=== PATIENT | female | born 1990 | race Caucasian/White ===

== ENCOUNTER 2025-06-08 11:59 | Emergency (ER) | payer OTHER, SELFPAY ==
[2025-06-08] VITALS (7 sets, daily range): BP systolic 107–149; BP diastolic 57–87; PULSE 45–93; RESP 12–18; TEMP 36.2–37.1; O2SAT 97–100; BMI 22.6
--- NOTE | ~2025-06-08 | CT_ITS ---
CLINICAL HISTORY: ttp rlq and epigastric region Exam: CT Abdomen and Pelvis With IV Contrast Comparison: 06/08/2025, [address] [facility] Findings: The liver density is homogeneous. No biliary abnormalities The spleen is normal in size No pancreatic ductal dilatation No hydronephrosis. No urinary tract calculi or obstruction No adenopathy Fluid-filled loops of bowel measuring 2.8-3 cm in diameter in the upper mid abdomen consistent with localized ileus. No signs of obstruction with abrupt zone of transition. The appendix is normal. No free fluid/free air No vascular abnormalities Bladder outline is smooth No suspicious skeletal lesions. Impression : Fluid-filled loops of bowel in the upper abdomen without zone of transition, most consistent with localized ileus. Follow-up x-ray may be of benefit to document resolution or progression of this abnormal bowel-gas pattern. Normal-size uterus. Anterior lower uterine segment wall thinning and uterine scar is present This document has been electronically signed by: Kit Valdez MD on 06/08/2025 18:04:13
--- NOTE | 2025-06-08 12:10 | ED_ITS ---
HPI - General Adult General Chief complaint: Nausea/Vomiting/Diarrhea Stated complaint: n/v/d Time Seen by Provider: 06/08/25 16:08 Source: patient Mode of arrival: ambulatory Limitations: no limitations History of Present Illness ED Provider: Jody Garcia PA-C HPI narrative: 34-year-old female presents with one week of persistent vomiting. She reports that any oral intake (solids or liquids) provokes emesis. No associated hematemesis or diarrhea. She notes minimal urine output. Denies sick contacts, recent travel, dietary changes, or known exposure to similar illness. No prior history of GERD, gastritis, or other abdominal disorders. Denies heartburn. Abdominal pain is present, localized mainly to the epigastric region and right lower quadrant, rated 6/10 at presentation. No prior abdominal surgeries except for two sections. Currently mildly nauseated in the ED. No chest pain with eating. Last attempted oral intake was broth two days ago, which she was unable to tolerate. No home treatments taken for pain or nausea. Review of Systems: * Constitutional: Positive for nausea and vomiting x1 week; denies fever, chills. * GI: Positive for abdominal pain (epigastric, RLQ), nausea, vomiting. Denies hematemesis, diarrhea, heartburn, or change in bowel habits. * : Reports diminished urine output; denies dysuria, hematuria, vaginal symptoms. * Respiratory: Denies cough, sore throat. * Dermatologic: Denies rashes. * ENT: Denies sore throat. * Other systems: Not specifically discussed. Related Data Allergies Allergy/AdvReac Type Severity Reaction Status Date / Time No Known Allergies Allergy Verified 06/08/25 12:12 Review of Systems 2 Review of Systems: Yes all other systems are reviewed and are negative PMFSH Past Medical History Attestation statement: The following information was validated with the patient. Source: nursing notes reviewed Physical Exam ED Exam Exam: - General: Alert, appears mildly uncomfortable but not in acute distress. - HEENT: Oral mucosa moist; ; no significant dryness or oral lesions, no lymphadenopathy. No pallor, no scleral icteris - Chest: Chest wall nontender. Lungs CTAB, HEART: no M/R/G, s1 and s2 present, distal pulses 2+ equal and symmetric, cap refill < 3 secs - Abdomen: Soft. Mild tenderness on palpation of epigastric area, right lower quadrant, and periumbilical region; no guarding noted. - Skin: No rashes observed. Vital Signs: Vital Signs - 24 hr 06/08/25 12:10 06/08/25 14:19 06/08/25 16:31 Temperature 97.1 F 98.7 F 98.7 F Pulse Rate 93 75 67 Respiratory Rate 18 14 14 Blood Pressure 149/87 H 139/78 135/71 Pulse Oximetry 97 97 97 Oxygen Delivery Method Room Air Room Air Room Air 06/08/25 17:42 06/08/25 18:40 06/08/25 20:14 Temperature 98.3 F Pulse Rate 45 L 62 64 Respiratory Rate 18 12 16 Blood Pressure 127/73 132/68 107/57 L Pulse Oximetry 100 100 99 Oxygen Delivery Method Room Air Room Air Room Air BMI result Body Mass Index 22.6 Course Course Course Narrative: Rapid medical examination performed in triage by Amanda Mercedes PA-C: Patient is a 34 year old assigned female at presenting to the emergency department with nausea, vomiting, and diarrhea. Patient states that over the last week she has been throwing up. Detailed physical exam and review of systems are deferred to the mid level clinician. Labs ordered. Patient placed back in the waiting room pending room availability and results. Medications Administered Discontinued Medications Generic Name Dose Route Start Last Admin Trade Name Freq PRN Reason Stop Dose Admin Sodium Chloride 1,000 mls @ 999 mls/hr 06/08/25 16:19 06/08/25 17:46 Ns IV 06/08/25 17:19 Infused .Q1H1M ONE Infusion Iohexol 100 ml 06/08/25 17:06 06/08/25 17:06 Iohexol 350 Mg/Ml 100 Ml Infus..Btl IV 06/08/25 17:07 85 ml ONCE ONE Administration Morphine Sulfate 2 mg 06/08/25 16:19 06/08/25 16:43 Morphine Sulfate 4 Mg/Ml Cartridge IVPUSH 06/08/25 16:20 2 mg ONCE ONE Administration Protocol Ondansetron HCl 4 mg 06/08/25 16:19 06/08/25 16:43 Ondansetron Hcl 4 Mg/2 Ml Vial IVPUSH 06/08/25 16:20 4 mg ONCE ONE Administration Medical Decision Making Medical Decision Making MDM Narrative: 34-year-old female presents with one week of persistent vomiting triggered by any oral intake, mild abdominal pain (epigastric and right lower quadrant), and minimal urine output. She is afebrile, hemodynamically stable, and does not appear in acute distress. Laboratory evaluation reveals leukocytosis with left shift, mild dehydration, and a negative test. CT abdomen/pelvis demonstrates fluid-filled loops of bowel in the upper abdomen without a clear transition zone, consistent with localized ileus. No evidence of bowel obstruction, sepsis, or acute surgical abdomen. Differential Diagnosis: * Localized ileus (most likely, given CT findings and clinical stability) * Early bowel obstruction (less likely due to absence of transition zone and clinical findings) * Infectious gastroenteritis (no sick contacts, travel, or diarrhea; less likely) * Metabolic derangements (electrolytes largely normal except for mild dehydration) * Medication-induced symptoms (no relevant medication history reported) * Gynecologic causes (negative test, no vaginal symptoms) Interpretation of [place] Findings: * CBC: Leukocytosis (WBC 15.8 K/?L) with left shift, supporting an inflammatory process but not specific for infection or sepsis. * CT Abdomen/Pelvis: Fluid-filled loops of bowel without transition zone, consistent with localized ileus; no evidence of obstruction, mass, or acute surgical pathology. * Electrolytes: Sodium, potassium, chloride within normal limits; mild dehydration suggested by BUN elevation and urine specific gravity. * test: Negative, ruling out -related causes. * Urinalysis: Mild proteinuria, otherwise unremarkable. * Vital signs: Afebrile, stable heart rate and blood pressure, no tachypnea or hypotension. Clinical Reasoning: * Bowel obstruction is unlikely given the absence of a transition zone on CT, lack of severe abdominal distension, and ability to tolerate some oral intake. * Sepsis is ruled out by the absence of fever, hemodynamic instability, and unremarkable urinalysis and imaging. * Acute surgical abdomen is not suspected due to lack of peritoneal signs, guarding, or severe pain. Rationale for Outpatient Management: * Patient is hemodynamically stable and afebrile. * She is able to tolerate some oral intake and is not in acute distress. * No evidence of obstruction, sepsis, or acute surgical pathology on imaging or exam. * Close outpatient follow-up and strict return precautions are appropriate to monitor for progression. Justification for Interventions: * IV fluids for rehydration, addressing mild dehydration and supporting hemodynamic stability. * Antiemetics (ondansetron) for symptomatic control of nausea and vomiting. * Pain control as needed per ED protocol. * Follow-up abdominal X-ray to monitor for resolution or progression of ileus, as recommended by radiology. * Outpatient GI referral for further evaluation and management. * Strict return precautions for worsening symptoms, inability to tolerate oral intake, or new concerning findings. Differential Diagnosis Differential Diagnoses: The differential diagnosis associated with the presentation includes See [facility] Admission/Observation Consideration of admission/observation: Escalation of care including admission/observation considered Lab Data [facility] Lab Attestation statement: I reviewed the patient's lab results. - CBC: WBC 15.8 K/?L with left shift. - Electrolytes: Na, K, Cl within normal limits; CO? 40 mmol/L. - BUN 25 mg/dL; Creatinine within normal limits; GFR >60 mL/min. - Glucose 110 mg/dL. - Calcium 11.1 mg/dL (uncorrected). - Liver panel: AST 37 U/L (mildly elevated); albumin 6.3 g/dL; total protein 9.9 g/dL. - test: Negative. - Viral panel: COVID, Flu, RSV negative. - UA: No leukocytosis; nitrites ?blood?; protein 100 mg/dL; specific gravity 1.030. 06/08/25 12:58 06/08/25 12:58 Labs: Lab Results 06/08/25 06/08/25 Range/Units 12:58 17:47 WBC 15.8 H (4.8-10.8) X10*3/uL RBC 5.89 H (4.20-5.50) X10*6/uL Hgb 13.8 (12.0-16.0) g/dl Hct 44.2 (37.0-47.0) % MCV 75.0 L (80.0-98.0) fL MCH 23.4 L (27.0-33.0) pg MCHC 31.2 (31.0-35.0) g/dl RDW 20.7 H (11.0-16.0) % Plt Count 468 H (160-400) X10*3/uL MPV 11.2 (9.4-12.3) fL Immature Gran % (Auto) 0.3 (0.0-0.4) % Neut % (Auto) 87.8 H (45-73) % Lymph % (Auto) 6.6 L (20-40) % Graham % (Auto) 4.9 (2-11) % Eos % (Auto) 0.1 (0-4) % Baso % (Auto) 0.3 (0-2) % Lymph # (Auto) 1.1 L (1.2-4.9) X10*3/uL Graham # (Auto) 0.8 (0.1-1.2) X10*3/uL Eos # (Auto) 0.0 (0.0-0.4) X10*3/uL Baso # (Auto) 0.1 (0.0-0.2) X10*3/uL Abs Immat Gran (auto) 0.04 H (0.00-0.03) X10*3/uL Absolute Neuts (auto) 13.9 H (2.0-8.3) x10*3/uL Absolute Nucleated RBC 0.000 (0.0-0.012) X10*3/uL Nucleated RBC % (auto) 0.0 (0.0-0.2) /100WBC Sodium 138 (135-145) mmol/L Potassium 3.5 (3.3-5.1) mmol/L Chloride 82 L (96-108) mmol/L Carbon Dioxide 40 H* (22-29) mmol/L Anion Gap 20 (12-20) BUN 25 H (9-16) mg/dL Creatinine 1.06 (0.5-1.4) mg/dL Estim Creat Clear Calc 54.7 Estimated GFR > 60 Random Glucose 110 (60-115) mg/dL Calcium 11.1 H (8.4-10.2) mg/dL Magnesium 2.4 (1.6-2.6) mg/dL Total Bilirubin 0.6 (0.0-1.0) mg/dL AST 37 H (5-31) U/L ALT 30 (0-31) U/L Alkaline Phosphatase 75 (39-117) U/L Total Protein 9.9 H (6.5-8.0) g/dL Albumin 6.3 H (3.5-5.0) g/dL Lipase 13 (8-78) U/L Beta HCG, Quant < 2 mIU/mL Urine Color Yellow Urine Appearance Clear Urine pH >= 9.0 (5.0-9.0) Ur Specific [place] >= 1.030 H (1.005-1.025) Urine Protein 100 (2+) H (Neg-Trace) mg/dL Urine Glucose (UA) Negative (Negative) mg/dL Urine Ketones 40 (Negative) mg/dL Urine Blood Negative (Negative) Urine Nitrite Negative (Negative) Ur Leukocyte Esterase Negative (Negative) Urine RBC 0-2 (0-2) /HPF Urine WBC 0-5 (0-5) /HPF Ur Squamous Epith Cells 0-2 (0-2) /HPF Urine Bacteria None Seen (None Seen) Hyaline Casts 0-2 (0-2) /LPF Influenza Type A (PCR) NEGATIVE (Negative) Influenza Type B (PCR) NEGATIVE (Negative) RSV RNA Qual (PCR) NEGATIVE (Negative) SARS-CoV-2 RNA (RT-PCR) NEGATIVE (Negative) Independent Interpretation I performed an independent interpretation of an: CT Scan Interpretation: no SBO or diverticulitis Radiology Impression Discussion of test interpretation with radiology: I have reviewed the radiologist's reading. Radiologist Impression: - CT Abdomen/Pelvis: Fluid-filled loops of bowel in the upper abdomen without clear transition zone, findings consistent with localized ileus. Normal-sized uterus with anterior lower uterine segment wall thinning and section scars. No hydronephrosis, urinary tract calculi, biliary abnormalities, adenopathy, or pancreatic ductal dilatation. Homogeneous liver density. Radiologist recommends follow-up abdominal X-ray to monitor progression/resolution of bowel gas pattern. Tests considered The following testing was considered but not selected: See MDM Prescription Management I considered prescription management with: Pain Medication and Antibiotic Social Determinants Patient?s care significantly limited by Social Determinants of Health including: Other Social Determinant of Health Critical Care Time Critical Care Time Critical Care Time: Yes Total Critical Care Time: 35 Attestation: This patient required critical care. Due to the fact that the patient required a significant amount of one on one physician ? patient contact time, ordering and review of studies, arranging urgent treatment with development of a management plan, evaluation of patient?s response to treatment with frequent reassessments, and discussions with other providers this patient required critical care time in excess of 30 minutes. Critical care time was indicated due to the inherent instability and/or potential for instability in this patient. The critical care time that is allocated to this patient is above and beyond any time spent on any other billable procedures performed on this patient. Discharge Plan Discharge Clinical Impression: Ileus, Gastroenteritis Patient Disposition: Home, Self-Care Instructions: Acute Nausea and Vomiting (DC), Ileus (ED) Additional Instructions: Your Diagnosis:?You have been diagnosed with a?localized ileus, which means a portion of your intestines is temporarily not moving food and fluids through as it normally should. This was seen on your CT scan and is causing your nausea and vomiting. The good news is that you are stable enough to recover at home with close monitoring. CT Results: Impression : Fluid-filled loops of bowel in the upper abdomen without zone of transition, most consistent with localized ileus. Follow-up x-ray may be of benefit to document resolution or progression of this abnormal bowel-gas pattern. Normal-size uterus. Anterior lower uterine segment wall thinning and uterine scar is present HOME CARE INSTRUCTIONS Diet: * Start with?clear liquids only?(water, broth, clear juices, popsicles, gelatin) for the first 24-48 hours * Sip slowly and in small amounts?do not force yourself to drink large quantities at once * If you tolerate clear liquids without vomiting for 24 hours, you may?slowly advance?to bland, low-fiber foods (crackers, toast, rice, bananas, applesauce) * Avoid?heavy, greasy, spicy, or high-fiber foods until your bowels are moving normally again * Chewing sugar-free gum?for 10-15 minutes 3-4 times daily may help your bowels start working again * You may try?drinking coffee?(regular or decaf) as tolerated, as this may help stimulate bowel function * Goal:?Work toward tolerating a regular diet and having a bowel movement, which signals recovery Activity: * Walk frequently?throughout the day?even short walks around your home can help stimulate your bowels to work again * Avoid strenuous exercise, heavy lifting (over 10-15 pounds), or vigorous activity until cleared by your doctor * Rest when needed but avoid staying in bed all day Medications: * Take?ondansetron (Zofran)?as prescribed for nausea. Typical dose: 4mg every 8 hours as needed. You already have this medication at home. * You may take?acetaminophen (Tylenol)?for mild abdominal discomfort if needed * Avoid?ibuprofen, aspirin, or other NSAIDs unless specifically instructed by your provider * Avoid?narcotic pain medications (opioids) as these can worsen ileus and slow down your bowels * Continue any other home medications as previously prescribed unless told otherwise Bowel Care: * Keep track of when you pass gas (flatus) and have your first bowel movement?this is an important sign of recovery * Do?not?use laxatives or stool softeners unless specifically instructed by your doctor FOLLOW-UP RECOMMENDATIONS * Follow-up X-ray:?You need a?follow-up abdominal X-ray?within 3-5 days to check if the ileus is improving. Please schedule this as directed by our office or your primary care provider. * Gastroenterology (GI) appointment:?You should see a GI specialist within?1-2 weeks?for further evaluation. We will arrange this referral listed in your discharge. * Primary care follow-up:?Check in with your primary care doctor within?1 week? to review your progress and imaging results. * Call our office?if you have questions or concerns before your scheduled appointments. STRICT RETURN PRECAUTIONS ? Go to the Emergency Department or call 911 if you experience: * Worsening or severe abdominal pain?(especially if sudden or sharp) * Persistent vomiting?that prevents you from keeping down any liquids for more than 12 hours * Fever?(temperature >=00.4?F or 38?C) * No passing of gas or stool?for more than 2-3 days despite following instructions * Blood in vomit or stool?(including black, tarry stools) * Severe bloating?or a hard, distended abdomen * Dizziness, fainting, or feeling like you might pass out * Decreased urination?or dark-colored urine (signs of dehydration) * Chest pain or difficulty breathing * Any new or concerning symptoms?that worry you IMPORTANT REMINDERS: * Recovery from ileus typically takes?a few days to 1-2 weeks. Be patient with your body. * The combination of?tolerating solid food AND having a bowel movement?is the best sign that your bowels are working properly again * Stay in close contact with your medical team and do not hesitate to seek help if something doesn't feel right * Keep all follow-up appointments?monitoring your progress is very important Your recovery plan was created specifically for you. Please follow these instructions carefully and reach out with any questions or concerns. Referrals: [facility] [place] [facility] [Provider Group, Gastroenterology] Referral Note: See CT results Clinical Impression: Ileus Stand Alone Forms: Work/School Release Interventions: ED Discharge Assessment Last Done: 06/08/25 21:13 Discharge Date/Time: 06/08/25 21:13 Print Language: [place]
[2025-06-08 13:04] LABS: MANUAL DIFF FLAG NO
[2025-06-08 13:05] LABS: Hematocrit 44.2 % (37.0-47.0); Hemoglobin 13.8 g/dl (12.0-16.0); Imm Gran Abs Auto 0.04 X10*3/uL (0.00-0.03); Imm Gran Pct Auto 0.3 % (0.0-0.4); Lymphocytes Absolute Auto 1.1 X10*3/uL (1.2-4.9); Mean Corpuscular HGB Conc 31.2 g/dl (31.0-35.0); Mean Corpuscular Hemoglobin 23.4 pg (27.0-33.0); Mean Corpuscular Volume 75.0 fL (80.0-98.0); NRBC Abs Auto 0.000 X10*3/uL (0.0-0.012); NRBC Pct Auto 0.0 /100WBC (0.0-0.2); Platelet Count 468 X10*3/uL (160-400); Red Blood Count 5.89 X10*6/uL (4.20-5.50); White Blood Count 15.8 X10*3/uL (4.8-10.8)
[2025-06-08 13:45] LABS: Alanine Aminotransferase 30 U/L (0-31); Albumin Level 6.3 g/dL (3.5-5.0); Alkaline Phosphatase 75 U/L (39-117); Anion Gap 20 (12-20); Aspartate Amino Transferase 37 U/L (5-31); Blood Urea Nitrogen 25 mg/dL (9-16); Calcium 11.1 mg/dL (8.4-10.2); Carbon Dioxide 40 mmol/L (22-29); Chloride 82 mmol/L (96-108); Creatinine Clr Calc Pharmacy 54.7; Estimated Glomerular Filt Rate > 60; Magnesium 2.4 mg/dL (1.6-2.6); Potassium 3.5 mmol/L (3.3-5.1); Sodium 138 mmol/L (135-145); Total Protein 9.9 g/dL (6.5-8.0)
[2025-06-08 13:59] LABS: Resp Syncy Virus RNA Qual PCR NEGATIVE (Negative); SARS COV2 PCR INHOUSE NEGATIVE (Negative)
[2025-06-08 16:41] LABS: Lipase 13 U/L (8-78)
--- OUTSIDE RECORDS SUMMARY | 2025-06-08 17:01 | XMS_ITS ---
Author Name [facility] Organization Unknown Care Team Organization Name Specialty Phone Email Start Date End [facility] 05/12/20222023
--- OUTSIDE RECORDS SUMMARY | 2025-06-08 17:01 | XMS_ITS | Clinical Summary ---
Author Organization [address] Address [address] [place] [phone] Phone Care Team Providers Care It Risk Analyst Name Role Phone Karl Kumar MD Primary Care Provider [phone] Allergies No known active allergies Medications PNV,calcium 72/iron,carb/folic ( PLUS ORAL) 4 Active ferrous sulfate 325 mg (65 mg elemental iron) tablet Take 1 tablet (325 mg total) by mouth every other day. 15 each 5 11/02/19 26 Active NIFEdipine XL (PROCARDIA XL) 30 mg 24 hr tablet Take 1 tablet (30 mg total) by mouth 1 (one) time each day before breakfast. Do not crush, chew, or split. 30 each 5 11/03/19 26 Active oxyCODONE (ROXICODONE) 5 mg immediate release tabletIndications: History of ,S/P repeat low transverse ,Severe pre-eclampsia in third trimester,Status post laparotomy with lysis of adhesions,Encounte r for female sterilization procedure,Spontane ous onset of labor after 37 but before 39 completed weeks gestation with delivery by planned section, delivered with mention of complication,Histo ry of anxiety Take 1 tablet (5 mg total) by mouth every 4 (four) hours if needed (Breakthrou gh pain). Max Daily Amount: 30 mg 15 tablet Active Active Problems Problem Noted Date Diagnosed Date Blood pressure check 11/06/2024 Pre-eclampsia, mild 11/03/2024 Overview (11/03/2024): Developed inpatient after delivery. No severe features. Started on nifedipine 30 mg XL daily. Normal to mild during rest of stay. Encounter for female sterilization procedure Overview (11/01/2024): S/p bilateral salpingectomy Status post laparotomy with lysis of adhesions 0 11/01/2024 Overview (11/01/2024): Severe pre-eclampsia in third trimester 11/02/19 25 Overview (11/01/2024): Severe BP's postoperatively. HELLP labs wnl except PCR not resulted 2nd to being out of range --Received labetalol 20 mg IVP and started on Nifedipine 30 XL. Asymptomatic and normal exam ----No magnesium sulfate administered, as severe BP's were attributed to pain. ------On Nifedipine BP's have been within normal range. Other specified anemias 11/01/2024 Overview (11/01/2024): Preop Hb 10.2 --> QBL 500 --> Postop Hb 9.4 -On ferrous sulfate 325 mg po every other day Spontaneous onset of labor a fter 37 but before 39 completed weeks gestation with delivery by planned section, delivered with mention of complication 10/31/2024 History of anxiety 10/16/2024 Overview (10/16/2024): Pt not engaged in mental health services at time of OBI visit - pt informed of [facility] services and declined at time of this visit. Elevated glucose tolerance test 09/15/2024 Overview (09/15/2024): One hour gtt 171; 3 hr GTT Normal ( borderline) Request for sterilization 09/05/2024 Overview (10/16/2024): Pt planning 3rd and request for tubal - APPROVED Limited care in second trimester 2024 Overview (08/03/2024): Pt has not been seen in office since 05/02/24 (IP visit 12w3d)). Now scheduled for OB appt 08/03/24. Supervision of normal intrau terine in multigravida, second trimester 07/27/2024 Overview (08/03/2024): 1. [facility] site: [address] 2. Delivery site: [facility] 3. Mobile Mommas: 4. Dating criteria: LMP only 5. Blood type: O+ 6. Genetic screening: Date: Result: Panorama: low risk, XX Horizon: negative Nuchal: normal NT Survey: MSAFP: too late to order 6. GBS: Date: 7. FOB name: Vernon Rivera, 8. Plans Repeat (would like tubal ligation) A. Epidural or other pain management - spinal B. Labor support identified - Vernon and her mom C. Tdap - Date: Flu - Date: D. Breast or Bottle feed: both breast and bottle E. Baby's name - F. Circumcision - no 9. Hospital Course: History of pre-eclampsia 07/27/2024 Overview (07/27/2024): 07/03/2022 pre-e without severe features. 04/26/24 baseline PIH labs ordered. WNL tp/cr ratio 0.09 ASA 162mg at 12 weeks next for prevention - ordered History of 07/27/2024 Overview (10/16/2024): 2016. 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, [facility] V28) Hyperemesis 12/07/2016 Overview (05/03/2024): Admitted to [facility] 4 months post- Recurrent admissions; attributed to marijuana use Resolved Problems Problem Noted Date Diagnosed Date Resolved Date Anxiety 05/03/2024 09/05/2024 Depression 05/03/2024 09/05/2024 Overview (05/03/2024): 04/26/24 denies any issues currently Homelessness 12/29/2018 09/05/2024 Overview (05/31/2024): 04/26/24 pt states no longer an issue History of marijuana use 03/10/201710/2024 Overview (05/03/2024): UDS negative 01/01/22 04/26/24 Hx of marijuana use. last used once prior to (has been 3yrs since regular used). 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 08/03/2024 Immunizations Immunization Administration Dates Next Due Tdap Tetanus diptheria acell ular pertussis (Boostrix; Adacel) 7yo and older 09/05/2024,04/30/2022,07/19/2016 Surgical History Surgery Date Site/Laterality Comments SECTION PROCEDURE: HISTORICAL DELIVERY; COMMENT: x2 ESOPHAGOGASTRODUODENOSCOPY 10/08/2017 PROCEDURE: AL ESOPHAGOGASTRODUODENOSCOPY TRANSORAL DIAGNOSTIC; COMMENT: [facility] inpatient, normal biopsies OTHER SURGICAL HISTORY PROCEDURE: AL DILATION & CURETTAGE DX&/THER NONOBSTETRIC; COMMENT: retained POCs Medical History Medical History Date Comments Anxiety DX:Anxiety Acid reflux DX:Acid reflux Depression DX:Depression Marijuana use 03/10/2017 DX:Marijuana use Homelessness 12/29/2018 DX:Homelessness; COMMENT: resolved Cyclic vomiting syndrome 12/07/2018 DX:Cycl ic vomiting syndrome Duodenitis 10/14/2017 DX:Duodenitis; C OMMENT: Hospitalized at [facility] 10/07-10/09/17 Enrolled in chronic care management 10/29/2017 DX:Enrolled in chronic care management; COMMENT: [facility] Tammie Mcclelland, RN [phone] Hyperemesis 12/07/2016 DX:Hyperemesis; COMMENT: Admitted to [facility] 4 months post- Recurrent admissions; attributed to marijuana use 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 last used once prior to (has been 3yrs since regular used). UDS ordered at intake - negative Homelessness 12/29/2018 04/26/24 pt stat es no longer an issue Depression 05/03/2024 04/26/24 denies any issues currently Family History Medical History Relation Name Comments Other: alive and well Brother No Known Problems Daughter Noemi Anemia Father Arthritis Father Other: hepatitis Father states reso lved Other: pre-diabetic Father Thyroid disease Father's side paternal co usin Heart attack Maternal Grandfather No Known Problems Maternal Grandmother li amena in [place] Anemia Mother Arthritis Mother Hypertension Mother Migraines Mother Other: gastritis Mother Stroke Mother TIA GI problems Paternal Grandfather Heart attack Paternal Grandfather Stroke Paternal Grandfather Breast cancer Paternal Grandmother Dx ?67 (unilateral) Hypertension Paternal Grandmother Other: pre-diabetes Paternal Grandmother Anemia Sister 1 Other: alive and well Sister 2 No Known Problems Son Cindy Cervical cancer Neg Hx Colon cancer Neg Hx Ovarian cancer Neg Hx Pancreatic cancer Neg Hx Prostate cancer Neg Hx Uterine cancer Neg Hx Relation Name Status Comments Brother Alive Daughter Noemi Alive Father Alive Father's side Alive Maternal Grandfather Maternal Grandmother Alive Mother Alive Paternal Grandfather Alive Paternal Grandmother Alive Sister 1 Alive Sister 2 Alive Son Cindy Alive Social History Tobacco Use Types Packs/Day Years Used Date Smoking Tobacco: Never Smokeless Tobacco: Never Alcohol Use Standard Drinks/Week Comments No 0 (1 standard drink = 0.6 oz pur e alcohol) Housing Instability Answer Date Recorde d Are you worried that in the next 2 months you may not have stable housing? No 10/30/2024 Food Access & Nutrition Answer Date Rec orded Do you have access to a vari ety of food including fruits and vegetables? No 10/30/2024 Access to Healthcare Answer Date Record ed Within the last 3 months, ho w many times did you visit the emergency department for your medical care? 1 10/30/2024 Health Literacy Answer Date Recorded How often do you need to hav e someone help you when you read instructions, pamphlets, or other written material from your doctor or pharmacy? Never 10/30/2024 Caregiver: How often do you need to have someone help you when you read instructions, pamphlets, or other written material from your doctor or pharmacy? Not on file 10/30/2024 Financial Risk Answer Date Recorded How hard is it for you to pa y for the very basics like food, housing, medical care, and air conditioning / heating? Not very hard 10/30/2024 Transportation Answer Date Recorded Has the lack of transportati on kept you from meetings, work, or from getting things needed for daily living? No Has the lack of transportati on kept you from medical appointments or from getting medications? No 10/30/2024 Social Isolation Answer Date Recorded How often do you feel lonely or isolated from th ose around you? Never 10/30/2024 Food Risk Answer Date Recorded Within the past 12 months we worried whether our food would run out before we got money to buy more. Patient declined 025 Within the past 12 months th e food we bought just didn't last and we didn't have money to get more. Patient declined 10/04 Education Answer Date Recorded Do you think completing more education or training, like finishing a GED, going to college, or learning a trade, would be helpful for you? Patient declined 10/30/2024 Employment and Income Answer Date Recor ded During the last four weeks, have you been actively looking for work? Patient declined 10/30/2024 Living Situation Answer Date Recorded What is your living situation? Unrecognized valu e 10/30/2024 Interpersonal Safety Answer Date Record ed Physical Abuse Unrecognized value 10/30/2024 Verbal Abuse Unrecognized value 10/30/2024 Comments No Sex and Gender Information Value Date Recorded Sex Assigned at Female 06/16/2024 1:49 PM EST Legal Sex Female 4:55 AM EST Gender Identity Female 06/16/2024 1:49 PM EST Sexual Orientation Straight 10/30/2024 1: 56 PM EDT Obstetrics History * This document contains information received from the source organization and may not represent a complete record from that organization. Para Term AB IAB SAB Ectopic Multiple Livin g Live Births 5 3 3 0 0 0 3 3 Date Outcome GA Total Labor Labor/2nd/3rd Weight Sex Type Anes PTL Meredith A1 A5 Name Clin 2016 2016 Term 2557 g (90.2 oz) M CS-Un spec Spinal N Livin g Cidny ackerman Complications: Intolera nce [facility] 2021 Term 38w 6d 2892 g (102 oz) F CS-LT ranv Epidur al Livin g Noemily ackerman [place] Delivery Location:[facility] Comments:pre-e w/out s evere features 2024 Term 38w 2d 0h 02m 0h 02m 2790 g (98.4 oz) F CS-LT ranv Genera l N Livin g 7 9 Analis Susan herbert MD Complications:Anesthetic Com plications Delivery Location:[facility] ([facility] Last Filed Vital Signs Vital Sign Reading Time Taken Comments Blood Pressure 128/82 11/06/2024 1:02 PM EDT Pulse 106 11/06/2024 1:02 PM EDT Temperature 36.7 C (98 F) 11/03/2024 8:00 AM EDT Respiratory Rate 18 11/06/2024 1:02 PM EDT Oxygen Saturation 100% 11/02/2024 6:41 PM EDT Inhaled Oxygen Concentration - - Weight 63.9 kg (140 lb 12.8 oz) 11/06/2024 1:02 PM EDT Height 154.9 cm (5' 1 ) 11/06/2024 1:02 PM EDT Body Mass Index 26.6 11/06/2024 1:02 PM EDT Plan of Treatment Scheduled Procedures Name Priority Associated Diagnoses Date/Ti me SECTION History of Health Maintenance Due Date Last Done Comments Hepatitis B Vaccines (1 of 3 - 19+ 3-dose series) 10/19/2011 Pneumococcal Vaccine: Pediatrics (0 to 5 Years) and At-Risk Patients (6 to 49 Years) (2 of 2 - PCV) 01/19/2018 01/19/2017 HPV Vaccines (1 - 3-dose SCDM series) 10/19/2019 Depression Screening 07/05/2024 04/26/2024 COVID-19 Vaccine (1 - 2024- season) 2025 Influenza Vaccine (#1) 2025 04/14/2016 Social Influencers of Health Screening 10/30/2025 10/30/2024 Hypertension/CHF/CAD Annual BMP Blood Test 10/31/2025 10/31/2024, 10/30/2024, 04/26/2024 Cervical Cancer Screening: HPV 01/08/2027 01/08/2022 Cholesterol Screening (Lipid Panel) 05/20/2027 05/20/2022 DTaP,Tdap,and Td Vaccines (5 - Td or Tdap) 09/05/2034 09/05/2024, 04/30/2022, 07/19/2016, Additional history exists RSV Immunization Adult Patients (1 - 1-dose 75+ series) 10/19/2067 HIV Screening Completed 04/26/2024, 04/05, 04/26/2024 Hepatitis C Screening Completed 04/26/2024, 024 HIB Vaccines Aged Out No longer eligi ble based on patient's age to complete this topic Hepatitis A Vaccines Aged Out No long er eligible based on patient's age to complete this topic IPV Vaccines Aged Out No longer eligi ble based on patient's age to complete this topic MMR Vaccines Aged Out No longer eligi ble based on patient's age to complete this topic Meningococcal ACWY Vaccine Aged Out N o longer eligible based on patient's age to complete this topic Meningococcal B Vaccine Aged Out No l onger eligible based on patient's age to complete this topic RSV Immunization Patients Under 20 months Aged Out No longer eligible based on patient's age to complete this topic Varicella Vaccines Aged Out No longer eligible based on patient's age to complete this topic Procedures Procedure Name Priority Date/Time Associated Diagnosis Comments CREATININE, SERUM STAT 10/31/2024 8:2 2 AM EDT DEPRESSION SCREENING Routine 04/26/2024 HEPATITIS C SCREENING Routine 04/26/2024 HIV SCREENING Routine 04/26/2024 LIPID PANEL Routine 05/20/2022 HPV Routine 01/08/2022 from Last 3 Months or Most Recently Relevant to Health Maintenance Results * Creatinine (10/31/2024 8:22 AM EDT) Pathologist [facility] Creatinine 0.57 0.50 - 1.10 mg/dL LAB CHEMISTRY METHOD 10/31/2024 8:55 AM EDT [facility] eGFR 124 >=60 mL/min/1. 73m2 LAB CHEMISTRY METHOD 10/31/2024 8:55 AM EDT [facility] Comment:Calculation based on the Chronic Kidney Disease Epidemiology Collaboration (CKD-EPI) equation refit without adjustment for race. Blood Venous blood specimen / Unknown Venipuncture / Unknown 10/31/2024 8:22 AM EDT 10/31/2024 8:29 AM EDT Francy Ibrahim MD LAB BLOOD ORDERABLES Final Resul t [facility] [address] [place] [address], [place] [phone] * Depression Screening (04/26/2024) HM Depression Screening abstracted us Historical Provider HEALTH MAINTENANCE Final Result * HIV Screening (04/26/2024) HIV Screening abstracted us Historical Provider HEALTH MAINTENANCE Final Result * Hepatitis C Screening (04/26/2024) Pathologist [facility] Hepatitis C Screening abstracted Historical Provider HEALTH MAINTENANCE Final Result * (ABNORMAL) Lipid panel (05/20/2022) [facility] LDL/HDL Ratio 4 0 - 4 Triglycerides 182(A) 0 - 150 mg/dL Cholesterol 277(A) 0 - 200 mg/dL HDL 75 >=40 mg/dL LDL Cholesterol 166(A) 0 - 100 mg/dL Blood Venous blood specimen / Unknown Historical Provider LAB BLOOD ORDERABLES Luna l Result * Cervical Cancer Screening: HPV (01/08/2022) [facility] Cervical Cancer Screening: HPV no interpretation , abstracted Historical Provider HEALTH MAINTENANCE Final Result from Last 3 Months or Most Recently Relevant to Health Maintenance Insurance [facility] [employer] Advance Directives * Full Code - Default (Latest Code Status on File) Date Activated Date Inactivated Comments 10/30/2024 4:47 PM 11/03/2024 12:09 PM * Full Code - Confirmed Date Activated Date Inactivated Comments 10/30/2024 2:08 PM 10/30/2024 4:47 PM Care Teams It Risk Analyst Relationship Specialty Start Date End Date Karl Kumar MD [address] [place] [id number] PCP - General Internal Medicine 10/15/21
[2025-06-08] MEDS: iohexoL 350 MG/ML 100 ML INFUS..BTL IV (17:06)
[2025-06-08 18:11] LABS: Appearance Urine Clear; Glucose Urine UA Negative (Negative); PH >= 9.0 (5.0-9.0); Specific Gravity - Urine >= 1.030 (1.005-1.025); UMIC TRIGGER UACC YES
== END 2025-06-08 21:13 | disposition home or self-care (01) ==
PROVIDERS: Physician Assistant Medical; Emergency Provider Student in an Organized Health Care Education/Training Program
DX: K52.9 Noninfective gastroenteritis and colitis, unspecified (principal); R11.2 Nausea with vomiting, unspecified; R10.31 Right lower quadrant pain; R10.13 Epigastric pain; K56.7 Ileus, unspecified; Z03.818 Encounter for observation for suspected exposure to other biological agents ruled out
CPT/HCPCS: 74177; 80053; 81001; 83690; 83735; 84702; 85025; 87637; 96361; 96374; 96375; 99285; J2270; J2405; Q9967

== ENCOUNTER → 2025-06-08 16:19 | Outpatient (BNV) | payer OTHER, SELFPAY | PROVIDERS: Emergency Provider Student in an Organized Health Care Education/Training Program; Visit Provider Radiology Diagnostic Radiology | DX: R18.8 Other ascites (principal); Z98.891 History of uterine scar from previous surgery | CPT/HCPCS: 74177 ==